=== PATIENT | female | born 1970 | race Hispanic/Latino ===

== ENCOUNTER 2019-05-18 22:34 | Inpatient (IN) | payer SELFPAY ==
[~2019-05-18] VITALS: Ht 149.9 cm; Wt 72.6 kg
[2019-05-18] MEDS ORDERED: METOPROLOL TARTRATE 1 MG/ML 5ML VIAL IV ONE (23:06)
[2019-05-18 23:26] LABS: BASOPHILS % (AUTO) 0.8 % (0.0-5.0); HEMATOCRIT 30.2 % (36-48); LYMPHOCYTES % (AUTO) 20.4 % (21.0-51.0); MEAN CORPUSCULAR HEMOGLOBIN 17.4 pg (27.0-33.0); MEAN CORPUSCULAR HGB CONC 27.5 g/dL (32.0-36.0); MEAN CORPUSCULAR VOLUME 63.2 fL (79-99); MONOCYTES % (AUTO) 5.2 % (3.0-13.0); NEUTROPHILS % (AUTO) 62.4 % (40.0-77.0); PLATELET COUNT (AUTO) 405 K/uL (130-400); RED BLOOD CELL COUNT(AUTO) 4.78 MIL/uL (4.00-5.50); RED CELL DISTRIBUTION WIDTH 21.5 % (11.0-15.5); WHITE BLOOD COUNT (AUTO) 8.3 K/uL (4.8-10.8)
[2019-05-18 23:28] LABS: CARBON DIOXIDE 28 mmol/L (21-32); CHLORIDE 102 mmol/L (101-111); CREATININE 0.8 mg/dL (0.5-1.5); GLOMERULAR FILTR. RATE CALC 81 mL/min (>60); GLUCOSE,RANDOM 129 mg/dL (70-105); POTASSIUM 4.2 mmol/L (3.5-5.1); SODIUM SERUM 140 mmol/L (136-145); UREA NITROGEN, BLOOD 12 mg/dL (7-18)
[2019-05-18 23:32] LABS: ALANINE AMINOTRANSFERASE 26 U/L (12-78); ALBUMIN 3.7 g/dL (3.5-5.0); ALCOHOL, BLOOD < 3 mg/dL (0-10); ASPARTATE AMINOTRANSFERASE 23 U/L (10-37); BILIRUBIN,TOTAL 0.1 mg/dL (0.2-1.0); CREATINE KINASE, TOTAL 56 U/L (21-232); INR 0.93 (0.85-1.15); LDL DIRECT 110 mg/dL (0-99); PARTIAL THROMBOPLASTIN TIME 23.3 SEC (26.3-35.5); PROTHROMBIN TIME 9.8 SEC (9.6-11.6); TOTAL PROTEIN, SERUM 8.7 g/dL (6.0-8.3)
[2019-05-18 23:36] LABS: APPEARANCE,URINE Clear (CLEAR); BILIRUBIN,URINE Negative (NEGATIVE); COLOR,URINE Yellow (YELLOW); GLUCOSE, URINE (UA) Negative (NEGATIVE); KETONES,URINE Trace mg/dL (NEGATIVE); LEUKOCYTE ESTERASE ,URINE Small (NEGATIVE); NITRATE,URINE Positive (NEGATIVE); OCCULT BLOOD,URINE Negative (NEGATIVE); PH,URINE 5.5 (5.0-8.0); PROTEIN,URINE Negative (NEGATIVE)
[2019-05-18 23:43] LABS: AMPHET/METH SCREEN,URINE NEGATIVE (NEGATIVE); BARBITURATE SCREEN, URINE NEGATIVE (NEGATIVE); BENZODIAZEPINES SCREEN,URINE NEGATIVE (NEGATIVE); CANNABINOID SCREEN,URINE NEGATIVE (NEGATIVE); COCAINE SCREEN,URINE NEGATIVE (NEGATIVE); OPIATE SCREEN,URINE NEGATIVE (NEGATIVE); PHENCYCLIDINE SCREEN,URINE NEGATIVE (NEGATIVE)
[2019-05-18 23:45] LABS: BACTERIA,URINE Moderate /HPF (None Seen); MUCUS,URINE Few LPF (None Seen); RBC,URINE 0-1 /HPF (0-1)
[2019-05-18 23:51] LABS: PLATELET MORPHOLOGY LARGE PLTS PRESENT
[2019-05-19] MEDS ORDERED: CEFTRIAXONE SODIUM 1 GM ONE (00:10)
[2019-05-19] MEDS ORDERED: IOHEXOL-350 75 ML VIAL IV ONE (00:53)
[2019-05-19 01:06] LABS: HEMOGLOBIN A1C 5.4 % (4.0-6.0)
[2019-05-19 01:29] LABS: % IRON SATURATION 3.8 % (22-44)
[2019-05-19] MEDS ORDERED: SODIUM CHLORIDE 0.9% 1000ML 1,000 ML IV SCH (02:40)
[2019-05-19] MEDS ORDERED: ONDANSETRON HCL 4 MG/2 ML VIAL IV PRN (02:45)
[2019-05-19] MEDS ORDERED: DiphenhydrAMINE HCL 50 MG/ML VIAL IV PRN (02:45)
[2019-05-19] MEDS ORDERED: ACETAMINOPHEN 325 MG TAB PO PRN ×2 (02:45)
[2019-05-19] MEDS ORDERED: NITROGLYCERIN 0.4 MG SL TAB SL PRN (02:45)
[2019-05-19 03:15] VITALS: BP 185/97
--- NOTE | 2019-05-19 03:15 | NUR ---
ELEVATED BP. PT BP 185/97, HR 76- PT NPO, NO BP MEDICATION ADMINISTERED. REI, MEETING COORDINATOR MADE AWARE, STATED ELEVATED BP IS OKAY FOR NOW, CALL MD TO MAKE AWARE IF SBP GOES ABOVE 200. WILL CONTINUE TO MONITOR PT.
--- NOTE | 2019-05-19 03:38 | NUR ---
ADMISSION PT ADMITTED FROM ER INTO ROOM 404. PT IS AWAKE, ALERT AND VERBALLY RESPONSIVE, NO C/O PAIN OR DISTRESS AT THIS TIME. C/O FEELING HEAVINESS TO RIGHT UPPER AND LOWER EXTREMITY, SENSATION WNL, STRENGTH WNL TO BOTH UPPER AND LOWER EXTREMITIES. PT ORIENTED TO ROOM, CALL HILARIO WITHIN REACH, BED IN LOWEST POSITION. Addendum: 05/19/19 at 0340 by PATRICIA RUBIN RN Amended: Links added.
[2019-05-19 04:12] VITALS: BP 194/88
[2019-05-19 08:00] VITALS: BP 190/98
[2019-05-19] MEDS ORDERED: CEFTRIAXONE SODIUM 1 GM IVP SCH (09:00)
[2019-05-19] MEDS ORDERED: FAMOTIDINE/PF 20 MG/2 ML VIAL IV SCH (09:00)
[2019-05-19] MEDS: ASPIRIN 325MG EC TAB 325 MG TABLET.DR PO SCH (09:37)
[2019-05-19] MEDS: ENOXAPARIN SODIUM 40 MG/0.4 ML SYRINGE SQ SCH (09:38)
--- NOTE | 2019-05-19 09:58 | NUR ---
DYSPHAGIA EVMANUEL HANEY. -S/S OF ASPIRATION. RECOMMEND REGULAR SOLIDS, THIN LIQUIDS, AND PILLS WHOLE WITH LIQUIDS. Addendum: 05/19/[address] RUBI YOUNG Amended: Links added.
[2019-05-19 11:00] VITALS: BP_SYST 108; BP_SYST 187; BP_DIAS 56; BP_DIAS 98
[2019-05-19 12:31] LABS: HEMATOCRIT 28.3 % (36-48); MEAN CORPUSCULAR HEMOGLOBIN 17.3 pg (27.0-33.0); MEAN CORPUSCULAR HGB CONC 26.9 g/dL (32.0-36.0); MEAN CORPUSCULAR VOLUME 64.5 fL (79-99); PLATELET COUNT (AUTO) 358 K/uL (130-400); RED BLOOD CELL COUNT(AUTO) 4.39 MIL/uL (4.00-5.50); RED CELL DISTRIBUTION WIDTH 21.2 % (11.0-15.5); WHITE BLOOD COUNT (AUTO) 7.1 K/uL (4.8-10.8)
[2019-05-19 13:01] LABS: CHOLESTEROL 175 mg/dL (<200); CREATINE KINASE, TOTAL 36 U/L (21-232); HDL CHOLESTEROL 66 mg/dL (35-85); LDL DIRECT 98 mg/dL (0-99); MYOGLOBIN 22 ng/mL (10-92); TRIGLYCERIDES 46 mg/dL (30-200); TROPONIN I < 0.04 ng/mL (0.00-0.06)
--- NOTE | 2019-05-19 13:30 | NUR ---
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
[2019-05-19] MEDS ORDERED: LORAZEPAM 0.5 MG TABLET PO SCH (14:00)
[2019-05-19 14:29] LABS: BASOPHILS % (MANUAL) 2 % (0-2); EOSINOPHILS % (MANUAL) 8 % (1-6); LYMPHOCYTES % (MANUAL) 28 % (22-44); MAN.DIFF COMMENT-IMPRESSION MANUAL DIFFERENTIAL; MONOCYTES % (MANUAL) 4 % (2-9); SEGMENTED NEUTROPHILS % 58 % (40-70)
[2019-05-19 14:30] LABS: PLATELET MORPHOLOGY COMMENT LARGE PLTS PRESENT
[2019-05-19 14:39] LABS: ALBUMIN 3.3 g/dL (3.5-5.0); BILIRUBIN,TOTAL 0.1 mg/dL (0.2-1.0); CREATININE 0.7 mg/dL (0.5-1.5); MAGNESIUM 2.1 mg/dL (1.80-2.40); POTASSIUM 3.5 mmol/L (3.5-5.1); TOTAL PROTEIN, SERUM 7.8 g/dL (6.0-8.3)
[2019-05-19 16:00] VITALS: BP 160/71
--- NOTE | 2019-05-19 16:54 | NUR ---
INITIAL: Met w pt this afternoon to discuss dcp. Pt mentions that she recently moved from [place] to [facility] and is currently living w her dtr. Prior to admission pt was independent w ambulation and ADLs. She does not own any DME or receive services. Low income packet provided to pt. Pt mentions that she feels safe and comfortable to [place]. CM to continue to follow and wait for Md recommendations. Addendum: 05/19/19 at 1655 by DORI DEVI Amended: Links added.
[2019-05-19 20:08] VITALS: BP 174/81
[2019-05-19] MEDS: FAMOTIDINE 20MG TAB 20 MG TAB PO SCH (20:26)
[2019-05-20 00:08] VITALS: BP 185/87
[2019-05-20 04:08] VITALS: BP 196/95
[2019-05-20 06:28] LABS: BASOPHILS % (AUTO) 0.8 % (0.0-5.0); EOSINOPHILS % (AUTO) 12.4 % (0.0-8.0); HEMATOCRIT 29.8 % (36-48); LYMPHOCYTES % (AUTO) 26.1 % (21.0-51.0); MEAN CORPUSCULAR HGB CONC 26.5 g/dL (32.0-36.0); MEAN CORPUSCULAR VOLUME 64.1 fL (79-99); NEUTROPHILS % (AUTO) 55.5 % (40.0-77.0); PLATELET COUNT (AUTO) 404 K/uL (130-400); RED BLOOD CELL COUNT(AUTO) 4.65 MIL/uL (4.00-5.50); RED CELL DISTRIBUTION WIDTH 21.2 % (11.0-15.5); WHITE BLOOD COUNT (AUTO) 8.9 K/uL (4.8-10.8)
[2019-05-20 07:05] LABS: ALBUMIN 3.6 g/dL (3.5-5.0); BILIRUBIN,TOTAL 0.2 mg/dL (0.2-1.0); CREATININE 0.7 mg/dL (0.5-1.5); POTASSIUM 3.2 mmol/L (3.5-5.1); TOTAL PROTEIN, SERUM 8.2 g/dL (6.0-8.3)
[2019-05-20 08:00] VITALS: BP 192/89
[2019-05-20] MEDS ORDERED: LORAZEPAM 0.5 MG TABLET PO PRN (08:00)
[2019-05-20] MEDS ORDERED: POTASSIUM CHLORIDE 10% ELIXIR 20 MEQ/15 ML UDCUP PO PRN (09:00)
[2019-05-20] MEDS ORDERED: LIDOCAINE HCL-MPF 1% 2ML VIAL IV PRN (09:00)
[2019-05-20] MEDS ORDERED: POTASSIUM CHLORIDE 20 MEQ ERTAB PO PRN (09:00)
[2019-05-20] MEDS ORDERED: POTASSIUM CHLORIDE 20MEQ/100ML 100 ML IV PRN (09:00)
[2019-05-20] MEDS: FAMOTIDINE 20MG TAB 20 MG TAB PO SCH ×2 (09:57→21:29)
[2019-05-20] MEDS: ASPIRIN 325MG EC TAB 325 MG TABLET.DR PO SCH (09:57)
[2019-05-20] MEDS: LISINOPRIL 10 MG TABLET PO SCH ×2 (09:58→21:30)
[2019-05-20] MEDS: POTASSIUM CHLORIDE 20 MEQ ERTAB PO SCH (09:59)
[2019-05-20] MEDS: CEFTRIAXONE SODIUM 1 GM IVP SCH ×2 (10:00→21:30)
[2019-05-20] MEDS: ENOXAPARIN SODIUM 40 MG/0.4 ML SYRINGE SQ SCH (10:01)
--- NOTE | 2019-05-20 10:11 | NUR ---
after several calls i have spoken to laboratory technologist and he will call me back when mri is going to be done today so that i can pre-medicate pt; pt has been updated
[2019-05-20] MEDS ORDERED: LORAZEPAM 2 MG/ML 1 ML VIAL IVP SCH (10:15)
[2019-05-20 11:00] VITALS: BP 197/95
[2019-05-20] MEDS ORDERED: CLOPIDOGREL BISULFATE 75 MG TAB PO SCH (13:45)
[2019-05-20 16:00] VITALS: BP 170/83
[2019-05-20 20:08] VITALS: BP 165/98
[2019-05-20] MEDS ORDERED: ATORVASTATIN CALCIUM 20 MG TABLET PO SCH (21:00)
[2019-05-21] VITALS (7 sets, daily range): BP systolic 141–196; BP diastolic 65–92
[2019-05-21 05:38] LABS: BASOPHILS % (AUTO) 0.9 % (0.0-5.0); EOSINOPHILS % (AUTO) 13.1 % (0.0-8.0); HEMATOCRIT 28.6 % (36-48); LYMPHOCYTES % (AUTO) 19.5 % (21.0-51.0); MEAN CORPUSCULAR HEMOGLOBIN 17.2 pg (27.0-33.0); MEAN CORPUSCULAR HGB CONC 26.6 g/dL (32.0-36.0); MEAN CORPUSCULAR VOLUME 64.6 fL (79-99); MONOCYTES % (AUTO) 7.1 % (3.0-13.0); NEUTROPHILS % (AUTO) 59.1 % (40.0-77.0); PLATELET COUNT (AUTO) 385 K/uL (130-400); RED BLOOD CELL COUNT(AUTO) 4.43 MIL/uL (4.00-5.50); RED CELL DISTRIBUTION WIDTH 21.7 % (11.0-15.5); WHITE BLOOD COUNT (AUTO) 7.7 K/uL (4.8-10.8)
[2019-05-21 06:02] LABS: ALBUMIN 3.2 g/dL (3.5-5.0); BILIRUBIN,TOTAL 0.1 mg/dL (0.2-1.0); CREATININE 0.8 mg/dL (0.5-1.5); POTASSIUM 3.9 mmol/L (3.5-5.1); TOTAL PROTEIN, SERUM 7.6 g/dL (6.0-8.3)
[2019-05-21] MEDS: FAMOTIDINE 20MG TAB 20 MG TAB PO SCH ×2 (07:42→19:22)
[2019-05-21] MEDS: CEFTRIAXONE SODIUM 1 GM IVP SCH ×2 (07:42→19:22)
[2019-05-21] MEDS: CLOPIDOGREL BISULFATE 75 MG TAB PO SCH (07:43)
[2019-05-21] MEDS: ASPIRIN 325MG EC TAB 325 MG TABLET.DR PO SCH (07:43)
[2019-05-21] MEDS: LISINOPRIL 10 MG TABLET PO SCH ×3 (07:43→19:26)
[2019-05-21] MEDS: POTASSIUM CHLORIDE 20 MEQ ERTAB PO SCH (07:45)
[2019-05-21] MEDS ORDERED: HYDRALAZINE HCL 20 MG/ML VIAL ONE (10:29)
[2019-05-21] MEDS ORDERED: HYDRALAZINE HCL 20 MG/ML VIAL IV PRN (10:30)
[2019-05-21] MEDS ORDERED: HYDROCHLOROTHIAZIDE 25 MG TABLET PO SCH (10:45)
[2019-05-21] MEDS ORDERED: DOCUSATE SODIUM 100 MG CAP PO SCH (10:45)
[2019-05-21] MEDS: FERROUS SULFATE 325 MG TABLET.DR PO SCH ×2 (14:55→19:23)
[2019-05-21] MEDS: ATORVASTATIN CALCIUM 20 MG TABLET PO SCH (19:23)
[2019-05-22 03:53] VITALS: BP 146/70
[2019-05-22 06:44] LABS: BASOPHILS % (AUTO) 0.4 % (0.0-5.0); HEMATOCRIT 31.7 % (36-48); LYMPHOCYTES % (AUTO) 19.3 % (21.0-51.0); MEAN CORPUSCULAR HEMOGLOBIN 17.4 pg (27.0-33.0); MEAN CORPUSCULAR HGB CONC 27.4 g/dL (32.0-36.0); MEAN CORPUSCULAR VOLUME 63.3 fL (79-99); MONOCYTES % (AUTO) 7.1 % (3.0-13.0); NEUTROPHILS % (AUTO) 61.9 % (40.0-77.0); PLATELET COUNT (AUTO) 425 K/uL (130-400); RED BLOOD CELL COUNT(AUTO) 5.01 MIL/uL (4.00-5.50); RED CELL DISTRIBUTION WIDTH 21.8 % (11.0-15.5); WHITE BLOOD COUNT (AUTO) 7.9 K/uL (4.8-10.8)
[2019-05-22 06:55] LABS: ALBUMIN 3.6 g/dL (3.5-5.0); BILIRUBIN,TOTAL 0.2 mg/dL (0.2-1.0); CREATININE 0.8 mg/dL (0.5-1.5); POTASSIUM 3.4 mmol/L (3.5-5.1); TOTAL PROTEIN, SERUM 8.3 g/dL (6.0-8.3)
[2019-05-22 08:14] VITALS: BP 175/97
[2019-05-22] MEDS ORDERED: LISINOPRIL 20 MG TABLET ONE (09:14)
[2019-05-22] MEDS: CLOPIDOGREL BISULFATE 75 MG TAB PO SCH (09:17)
[2019-05-22] MEDS: ASPIRIN 325MG EC TAB 325 MG TABLET.DR PO SCH (09:18)
[2019-05-22] MEDS: POTASSIUM CHLORIDE 20 MEQ ERTAB PO SCH (09:18)
[2019-05-22] MEDS: FERROUS SULFATE 325 MG TABLET.DR PO SCH ×2 (09:18→14:28)
[2019-05-22] MEDS: CEFTRIAXONE SODIUM 1 GM IVP SCH (09:19)
[2019-05-22] MEDS: FAMOTIDINE 20MG TAB 20 MG TAB PO SCH (09:19)
[2019-05-22 10:53] VITALS: BP 154/81
[2019-05-22] MEDS ORDERED: CLOP75TA14 PO (14:27)
[2019-05-22] MEDS ORDERED: FERR324T4 PO (14:27)
[2019-05-22] MEDS ORDERED: HYDR25TA PO (14:27)
[2019-05-22] MEDS ORDERED: ATOR20TA65 PO (14:27)
[2019-05-22] MEDS ORDERED: ASPI-1005 PO (14:27)
[2019-05-22] MEDS ORDERED: LISI10TA7 PO (14:27)
[2019-05-22 17:00] VITALS: BP 185/65
[2019-05-22 17:08] VITALS: BP 162/92
[2019-05-22] MEDS: ATORVASTATIN CALCIUM 20 MG TABLET PO SCH (17:50)
[2019-05-22] MEDS ORDERED: LISINOPRIL 10 MG TABLET PO SCH (21:00)
[2019-05-23] MEDS ORDERED: HYDROCHLOROTHIAZIDE 25 MG TABLET PO SCH (09:00)
== END 2019-05-22 18:17 | disposition home or self-care (01) | DRG 65 ==
LOC: EDH 22:34 → EDHIP 22:35 → 4AH 05-19 02:55
PROVIDERS: ADMIT Hospitalist; ATTEND Hospitalist
DX: I63.9 Cerebral infarction, unspecified (principal); I16.1 Hypertensive emergency; N39.0 Urinary tract infection, site not specified; D50.9 Iron deficiency anemia, unspecified; E66.9 Obesity, unspecified; E87.6 Hypokalemia; I10 Essential (primary) hypertension; F17.210 Nicotine dependence, cigarettes, uncomplicated; B96.20 Unspecified Escherichia coli [E. coli] as the cause of diseases classified elsewhere; Z68.32 Body mass index [BMI] 32.0-32.9, adult; Z79.899 Other long term (current) drug therapy; Z91.14 Patient's other noncompliance with medication regimen
CPT/HCPCS: 36415; 70450; 70496; 70498; 70551; 71045; 72141; 80053; 80061; 80305; 81001; 82550; 82728; 83036; 83540; 83550; 83721; 83735; 83874; 83880; 84484; 85025; 85610; 85730; 87077; 87088; 87186; 92610; 93005; 93306; 93356; 93880; G0378; G0480; J0360; J0696; J1650; J3490; Q9967